=== PATIENT | female | born 1960 | race American Indian/Alaskan Native ===

== ENCOUNTER 2017-07-27 12:52 | Inpatient (IN) | payer MEDICAID, OTHER ==
[2017-07-27] MEDS ORDERED: Iohexol 240 (50 ml) PO STA (13:30)
[2017-07-27] MEDS ORDERED: Sodium Chloride 0.9% 1,000 ML IV ONE (13:30)
--- NOTE | 2017-07-27 13:36 | C.PDOC ---
History Of Present Illness 56 year old female with PMHx of DM and HTN comes in to the ED for evaluation of generalized abdominal pain in the mid/upper abdomen area that started yesterday which worsens with movement or after eating. Patient states her pain was initially mild but kept getting progressively worse last night, vomited once and has been unable to eat since then. Patient reports she had this type of symptoms before but were much more mild in comparison. Patient denies fever, chills, diarrhea, back pain, dysuria, hematuria, vaginal bleeding, vaginal discharge. Time Seen by Provider: 07/27/17 13:24 Chief Complaint (Nursing): Abdominal Pain History Per: Patient History/Exam Limitations: no limitations Onset/Duration Of Symptoms: Hrs Current Symptoms Are (Timing): Still Present Severity: Mild Location Of Pain/Discomfort: Diffuse, Epigastric Radiation Of Pain To:: None Quality Of Discomfort: "Pain" Associated Symptoms: Nausea, Vomiting, Loss Of Appetite Exacerbating Factors: Movement, Food Alleviating Factors: None Recent travel outside of the [place]: No Additional History Per: Patient Abnormal Vaginal Bleeding: No Past Medical History Reviewed: Historical Data, Nursing Documentation, Vital Signs Vital Signs: Last Vital Signs Temp 97.8 F 07/27/17 16:57 Pulse 103 H 07/27/17 16:57 Resp 18 07/27/17 16:57 BP 116/70 07/27/17 16:57 Pulse Ox 95 07/27/17 17:08 - Medical History PMH: HTN Other Surgeries: Tubal ligation Family History: States: Unknown Family Hx - Social History Hx Alcohol Use: No Hx Substance Use: No - Immunization History Hx Tetanus Toxoid Vaccination: Yes Hx Influenza Vaccination: Yes Hx Pneumococcal Vaccination: Yes Review Of Systems Constitutional: Negative for: Fever, Chills Cardiovascular: Negative for: Chest Pain Respiratory: Negative for: Cough, Shortness of Breath Gastrointestinal: Positive for: Vomiting, Abdominal Pain Genitourinary: Negative for: Dysuria, Hematuria, Vaginal Discharge, Vaginal Bleeding Musculoskeletal: Negative for: Back Pain Skin: Negative for: Rash Neurological: Negative for: Weakness, Numbness Physical Exam - Physical Exam Appears: Non-toxic, Other (Uncomfortable) Skin: Normal Color, Warm, Dry Head: Atraumatic, Normacephalic Nose: No Discharge, No Deformity Oral Mucosa: Moist Neck: Normal ROM, Supple Chest: Symmetrical Cardiovascular: Rhythm Regular, No Murmur Respiratory: Normal Breath Sounds, No Rales, No Rhonchi, No Wheezing Gastrointestinal/Abdominal: Bowel Sounds (Quiet), Soft, Tenderness (epigastric, periumbilical area), Guarding, No Rebound Extremity: Normal ROM, No Pedal Edema, No Calf Tenderness, No Deformity, No Swelling Neurological/Psych: Oriented x3, Normal Speech, Normal Cognition Gait: Steady ED Course And Treatment - Laboratory Results Result Diagrams: 07/27/17 13:50 07/27/17 13:50 Lab Interpretation: Abnormal Interpretation Of Abnormal: Elevated WBC 12.9 with left shift O2 Sat by Pulse Oximetry: 95 (On RA) Pulse Ox Interpretation: Normal - CT Scan/US CT abdo/pelvis Other Rad Studies (CT/US): Interpreted By Me, Read By Radiologist, Radiology Report Reviewed CT/US Interpretation: PROCEDURE: CT Abdomen and Pelvis with oral and IV contrast. HISTORY: abd pain. COMPARISON: None available. TECHNIQUE: Contiguous axial images of the abdomen and pelvis. Oral and IV contrast was administered. Coronal and Sagittal reformats generated and reviewed. Contrast dose: 100 mL Visipaque. Radiation dose: Total exam DLP = 566.86 mGy-cm. This CT exam was performed using one or more of the following dose reduction techniques: Automated exposure control, adjustment of the mA and/or kV according to patient size, and/or use of iterative reconstruction technique. FINDINGS: LOWER THORAX: Bibasilar atelectasis/ infiltrates. Trace pleural effusions. No visible pneumothorax. Small hiatal hernia. LIVER: Unremarkable. GALLBLADDER AND BILE DUCTS: Unremarkable. PANCREAS: Unremarkable. SPLEEN: Unremarkable. ADRENALS: Unremarkable. KIDNEYS AND URETERS: The kidneys enhance symmetrically. No hydronephrosis or obstructing renal calculus. BLADDER: The urinary bladder appears unremarkable. REPRODUCTIVE: Uterus is present. APPENDIX: Right lower quadrant inflammatory changes and small fluid. The proximal appendix appears within normal limits of caliber however the distal tip appears thick-walled and dilated with extensive associated inflammatory changes; overall appearance consistent with tip appendicitis. Correlate clinically. BOWEL: The stomach is nondistended. The bowel loops appear within normal limits of caliber without evidence of intestinal obstruction. PERITONEUM: No significant free fluid. No definite free air. LYMPH NODES: No bulky lymphadenopathy identified. VASCULATURE: No aortic aneurysm. BONES: Degenerative changes. OTHER FINDINGS: None. IMPRESSION: Right lower quadrant inflammatory changes and small fluid. The proximal appendix appears within normal limits of caliber however the distal tip appears thick-walled and dilated with extensive associated inflammatory changes; overall appearance consistent with tip appendicitis. Correlate clinically. Findings discussed with Dr. Blevins on 07/27/17 at 4:57 p.m. Reevaluation Time: 17:13 Reassessment Condition: Unchanged - Physician Consult Information Time Consulting Physician Contacted: 17:14 Physician Contacted: Clarisse Mittal Outcome Of Conversation: Patient to be admitted for surgery. Medical Decision Making Medical Decision Making: Impression : abdominal pain, vomit, decreased PO Plan: * Blood work * UA * Morphine 2 mg IVP * Omnipaque 50 ml PO * IV fluids * Zofran 4 mg IVP * CT abdo/pelvis Disposition - Disposition Disposition: HOSPITALIZED Disposition Time: 17:14 Condition: STABLE - Clinical Impression Clinical Impression: Appendicitis, acute - Scribe Statement The provider has reviewed the documentation as recorded by the Scribe Pa Lynne All medical record entries made by the Scribe were at my direction and personally dictated by me. I have reviewed the chart and agree that the record accurately reflects my personal performance of the history, physical exam, medical decision making, and the department course for this patient. I have also personally directed, reviewed, and agree with the discharge instructions and disposition.
[2017-07-27] MEDS ORDERED: Iohexol 240 (50 ml) ONE (13:41)
[2017-07-27] MEDS ORDERED: Sodium Chloride 0.9% 1,000 ML ONE (13:42)
[2017-07-27 13:59] LABS: BASO % 0.3 % (0.0-2.0); EOS % 0.1 % (0.0-4.0); HEMATOCRIT 39.6 % (34.0-47.0); LYMPH # 1.8 K/uL (1.0-4.3); LYMPH % 13.8 % (20.0-40.0); MEAN CORPUSCULAR HEMOGLOBIN 28.1 pg (27.0-31.0); MEAN CORPUSCULAR HGB CONC 32.6 g/dL (33.0-37.0); MEAN PLATELET VOLUME 10.1 fL (7.2-11.7); MONO # 0.5 K/uL (0.0-0.8); MONO % 4.2 % (0.0-10.0); RED CELL DISTRIBUTION WIDTH 15.3 % (11.5-14.5); WHITE BLOOD COUNT 12.9 K/uL (4.8-10.8)
[2017-07-27 14:10] LABS: ALKALINE PHOSPHATASE 52 U/L (38-126); ALT/SGPT 51 U/L (9-52); AST/SGOT 21 U/L (14-36); BILIRUBIN,TOTAL 0.9 mg/dL (0.2-1.3); BLOOD UREA NITROGEN 10 mg/dL (7-17); CALCIUM 8.9 mg/dl (8.6-10.4); CARBON DIOXIDE 35 mmol/L (22-30); CHLORIDE 100 mmol/L (98-107); GFR AFRICAN-AMERICAN > 60; GLUCOSE,RANDOM 130 mg/dL (65-105); POTASSIUM 3.4 mmol/L (3.6-5.2); SODIUM 141 mmol/L (132-148); TOTAL PROTEIN 8.6 g/dL (6.3-8.3)
[2017-07-27 14:32] LABS: ALB/GLOB RATIO 0.9 (1.0-2.1)
[2017-07-27 15:30] LABS: RBC URINE 6 /hpf (0-3); URINE BACTERIA RARE (<OCC); URINE BILIRUBIN NEGATIVE (NEGATIVE); URINE BLOOD NEGATIVE (NEGATIVE); URINE COLOR Yellow (YELLOW); URINE GLUCOSE (UA) NORMAL (Normal); URINE KETONE NEGATIVE (NEGATIVE); URINE LEUKOCYTE ESTERASE 2+ Leu/uL (Negative); URINE PROTEIN NEGATIVE (NEGATIVE); URINE UROBILINOGEN NORMAL mg/dL (0.2-1.0); WBC URINE 16 /hpf (0-5)
[2017-07-27] MEDS ORDERED: Iodixanol 320 mg/ml 150 ml Bottle IV ONE (16:05)
--- NOTE | 2017-07-27 17:02 | CT ---
PROCEDURE: CT Abdomen and Pelvis with oral and IV contrast. HISTORY: abd pain COMPARISON: None available. TECHNIQUE: Contiguous axial images of the abdomen and pelvis. Oral and IV contrast was administered. Coronal and Sagittal reformats generated and reviewed. Contrast dose: 100 mL Visipaque Radiation dose: Total exam DLP = 566.86 mGy-cm. This CT exam was performed using one or more of the following dose reduction techniques: Automated exposure control, adjustment of the mA and/or kV according to patient size, and/or use of iterative reconstruction technique. FINDINGS: LOWER THORAX: Bibasilar atelectasis/ infiltrates. Trace pleural effusions. No visible pneumothorax. Small hiatal hernia. LIVER: Unremarkable. GALLBLADDER AND BILE DUCTS: Unremarkable. PANCREAS: Unremarkable. SPLEEN: Unremarkable. ADRENALS: Unremarkable. KIDNEYS AND URETERS: The kidneys enhance symmetrically. No hydronephrosis or obstructing renal calculus. BLADDER: The urinary bladder appears unremarkable. REPRODUCTIVE: Uterus is present. APPENDIX: Right lower quadrant inflammatory changes and small fluid. The proximal appendix appears within normal limits of caliber however the distal tip appears thick-walled and dilated with extensive associated inflammatory changes; overall appearance consistent with tip appendicitis. Correlate clinically. BOWEL: The stomach is nondistended. The bowel loops appear within normal limits of caliber without evidence of intestinal obstruction. PERITONEUM: No significant free fluid. No definite free air. LYMPH NODES: No bulky lymphadenopathy identified. VASCULATURE: No aortic aneurysm. BONES: Degenerative changes. OTHER FINDINGS: None. IMPRESSION: Right lower quadrant inflammatory changes and small fluid. The proximal appendix appears within normal limits of caliber however the distal tip appears thick-walled and dilated with extensive associated inflammatory changes; overall appearance consistent with tip appendicitis. Correlate clinically. Findings discussed with Dr. Blevins on 07/27/17 at 4:57 p.m.
[2017-07-27] MEDS ORDERED: Piperacillin/Tazobact 3.375 gm 100 ML IV STA (17:15)
[2017-07-27] MEDS ORDERED: Morphine 4 MG/ML VIAL IVP PRN ×2 (17:55→21:04)
[2017-07-27] MEDS: Lactated Ringer's 1,000 ML IV SCH (18:35)
--- NOTE | 2017-07-27 19:17 | CP.PCM.HP ---
History of Present Illness - History of Present Illness History of Present Illness: GENERAL SURGERY HISTORY AND PHYSICAL NOTE FOR DR. JORDAN 56yo F with PMHx of HTN, DM, palpitations presents to the ED with abdominal pain. The pain is periumbilical and spreads diffusely but is worse on the right side. The pain began yesterday around noon. She was nauseous and vomited once. Denies diarrhea. Her last BM was 3 days ago but she does not feel constipated. He has chills. She last ate yesterday at breakfast. PMHx: HTN, DM, palpitations on beta norbert Surgeries: tubal ligation Allergies: none Social history: denies etoh, illicit drug use or tobacco use, moved to the from [place] in 2013 Present on Admission - Present on Admission Any Indicators Present on Admission: No Review of Systems - Review of Systems All systems: reviewed and no additional remarkable complaints except (as per hpi ) Past Patient History - Past Social History Smoking Status: Never Smoked - CARDIAC Hx Hypertension: Yes - ENDOCRINE/METABOLIC Hx Diabetes Mellitus Type 1: Yes - PSYCHIATRIC Hx Substance Use: No - SURGICAL HISTORY Hx Surgeries: No - ANESTHESIA Hx Anesthesia: No Meds Allergies/Adverse Reactions: Allergies Allergy/AdvReac Type Severity Reaction Status Date / Time No Known Allergies Allergy Verified 07/27/17 13:05 Physical Exam - Constitutional Appears: Well, Non-toxic, No Acute Distress - Head Exam Head Exam: ATRAUMATIC, NORMAL INSPECTION - Eye Exam Eye Exam: EOMI, Normal appearance - Respiratory Exam Respiratory Exam: NORMAL BREATHING PATTERN. absent: Respiratory Distress - Cardiovascular Exam Cardiovascular Exam: Tachycardia (mild), +S1, +S2 - GI/Abdominal Exam GI & Abdominal Exam: Rebound, Soft, Tenderness (tender diffusely, more in RLQ). absent: Distended, Firm, Guarding, Rigid - Neurological Exam Neurological exam: Alert, CN II-XII Intact, Oriented x3 - Psychiatric Exam Psychiatric exam: Normal Affect, Normal Mood - Skin Skin Exam: Dry, Normal Color, Warm Results - Vital Signs Recent Vital Signs: Last Vital Signs Temp 100 F H 07/27/17 17:52 Pulse 100 H 07/27/17 17:52 Resp 18 07/27/17 17:52 BP 135/80 07/27/17 17:52 Pulse Ox 97 07/27/17 17:52 - Labs Result Diagrams: 07/27/17 13:50 07/27/17 13:50 Labs: Laboratory Results - last 24 hr 07/27/17 07/27/17 07/27/17 13:50 13:50 15:17 WBC 12.9 H RBC 4.60 Hgb 12.9 Hct 39.6 MCV 86.0 MCH 28.1 MCHC 32.6 L RDW 15.3 H Plt Count 143 MPV 10.1 Neut % (Auto) 81.6 H Lymph % (Auto) 13.8 L [place] % (Auto) 4.2 Eos % (Auto) 0.1 Baso % (Auto) 0.3 Neut # 10.6 H Lymph # 1.8 [place] # 0.5 Eos # 0.0 Baso # 0.0 Sodium 141 Potassium 3.4 L Chloride 100 Carbon Dioxide 35 H Anion Gap 9 L BUN 10 Creatinine 0.8 Est GFR ( Amer) > 60 Est GFR (Non-Af Amer) > 60 POC Glucose (mg/dL) Random Glucose 130 H Calcium 8.9 Total Bilirubin 0.9 AST 21 ALT 51 Alkaline Phosphatase 52 Total Protein 8.6 H Albumin 4.0 Globulin 4.6 H Albumin/Globulin Ratio 0.9 L Lipase 60 Urine Color Yellow Urine Clarity Hazy Urine pH 7.0 Ur Specific [place] 1.002 L Urine Protein Negative Urine Glucose (UA) Normal Urine Ketones Negative Urine Blood Negative Urine Nitrate Negative Urine Bilirubin Negative Urine Urobilinogen Normal Ur Leukocyte Esterase 2+ H Urine WBC (Auto) 16 H Urine RBC (Auto) 6 H Ur Squamous Epith Cells 15 H Urine Bacteria Rare 07/27/17 18:03 WBC RBC Hgb Hct MCV MCH MCHC RDW Plt Count MPV Neut % (Auto) Lymph % (Auto) [place] % (Auto) Eos % (Auto) Baso % (Auto) Neut # Lymph # [place] # Eos # Baso # Sodium Potassium Chloride Carbon Dioxide Anion Gap BUN Creatinine Est GFR ( Amer) Est GFR (Non-Af Amer) POC Glucose (mg/dL) 109 Random Glucose Calcium Total Bilirubin AST ALT Alkaline Phosphatase Total Protein Albumin Globulin Albumin/Globulin Ratio Lipase Urine Color Urine Clarity Urine pH Ur Specific [place] Urine Protein Urine Glucose (UA) Urine Ketones Urine Blood Urine Nitrate Urine Bilirubin Urine Urobilinogen Ur Leukocyte Esterase Urine WBC (Auto) Urine RBC (Auto) Ur Squamous Epith Cells Urine Bacteria Assessment & Plan - Assessment and Plan (Free Text) Assessment: 56yo F with PMHx of HTN, DM, palpitations presents with abdominal pain and is found to have acute appendicitis - Temp 100, mild tachycardia - Leukocytosis 12.9 - Mild hypokalemia, gave 10meq IV KCl - NPO, IV fluids - IV Zosyn - Morphine and Zofran PRN - OR now for appendectomy - Procedure and risks explained to patient, all questions were answered, written consent was obtained - Discussed plan with Dr. Kyrie Kemp PGY-3
[2017-07-27] MEDS ORDERED: Lactated Ringer's 1,000 ML IV ONE ×2 (19:35→21:50)
[2017-07-27] MEDS ORDERED: Succinylcholine Chloride 20 mg/ml Syr (5 ml) IV ONE (19:39)
[2017-07-27] MEDS ORDERED: Propofol 10 mg/ml Inj (20 ML) ONE (19:39)
[2017-07-27] MEDS ORDERED: Rocuronium 10 mg/ml (5 ml) ONE (19:40)
[2017-07-27] MEDS ORDERED: Midazolam 2 MG/2 ML VIAL ONE (19:42)
[2017-07-27] MEDS ORDERED: Neostigmine Methylsulfate 3mg/3ml Syringe IV ONE (20:34)
[2017-07-27] MEDS ORDERED: HYDROmorphone 0.5 mg/0.5 ml ISec IVP PRN (20:57)
--- NOTE | 2017-07-27 20:58 | PCM.SURG1 ---
Surgeon's Initial Post Op Note - Surgeon's Notes Surgeon: Dr. Mittal Provider Relations Representative: Dr. Kemp PGY-3 Type of Anesthesia: General Endo Anesthesia Administered By: Dr. Parker Pre-Operative Diagnosis: Acute appendicitis Operative Findings: Purulent exhudate, surrounding tip of appendix Post-Operative Diagnosis: Acute appendicitis Operation Performed: Laparoscopic appendectomy Specimen/Specimens Removed: appendix Estimated Blood Loss: EBL {In ML}: 15 Blood Products Given: N/A Drains Used: No Drains Post-Op Condition: Fair Date of Surgery/Procedure: 07/27/17 Time of Surgery/Procedure: 20:58
[2017-07-27] MEDS ORDERED: Oxycodone/Acetaminophen 5/325 mg Tab PO PRN (21:03)
[2017-07-27] MEDS: (Novolin R) Insulin Human Regular 100 units/ml vial SC SCH (23:37)
[2017-07-28] MEDS: Benzocaine/Menthol (Cepacol) Lozenge MT PRN ×3 (00:24→12:26)
[2017-07-28] MEDS: Piperacill/Tazo 3.375gm in Dex 3.375 GM/50 ML BAG IVPB SCH ×4 (00:25→17:54)
[2017-07-28] MEDS: Lactated Ringer's 1,000 ML IV SCH ×3 (05:33→17:55)
[2017-07-28 07:53] LABS: BLOOD UREA NITROGEN 10 mg/dL (7-17); CALCIUM 7.9 mg/dl (8.6-10.4); CARBON DIOXIDE 32 mmol/L (22-30); CHLORIDE 102 mmol/L (98-107); GFR AFRICAN-AMERICAN > 60; GLUCOSE,RANDOM 205 mg/dL (65-105); POTASSIUM 3.5 mmol/L (3.6-5.2); SODIUM 139 mmol/L (132-148)
[2017-07-28 07:55] LABS: HEMATOCRIT 33.4 % (34.0-47.0); LYMPH # 0.6 K/uL (1.0-4.3); MEAN CELL VOLUME 85.9 fL (81.0-99.0); MEAN CORPUSCULAR HEMOGLOBIN 27.7 pg (27.0-31.0); MEAN CORPUSCULAR HGB CONC 32.3 g/dL (33.0-37.0); MEAN PLATELET VOLUME 10.5 fL (7.2-11.7); MONO # 0.2 K/uL (0.0-0.8); MONO % 1.6 % (0.0-10.0); PLATELET COUNT 127 K/uL (130-400); RED CELL DISTRIBUTION WIDTH 15.4 % (11.5-14.5); WHITE BLOOD COUNT 12.6 K/uL (4.8-10.8)
[2017-07-28] MEDS: (Novolin R) Insulin Human Regular 100 units/ml vial SC SCH ×4 (08:20→21:17)
[2017-07-28] MEDS: Potassium Chloride 20 mEq ER Tab PO SCH (09:38)
[2017-07-28 09:41] LABS: NEUTROPHIL 86 % (50-75); TOTAL CELLS COUNTED 100
[2017-07-28 09:43] LABS: LARGE PLATELETS PRESENT
--- NOTE | 2017-07-28 10:33 | CP.PCM.PN ---
Subjective - Date & Time of Evaluation Date of Evaluation: 07/28/17 Time of Evaluation: 10:31 - Subjective Subjective: Gen sx: Dr Mittal Pt S&E. POD#1 s/p lap appy. NAEO. No complaints. Pain well controlled. Tolerating diet. Urinating. Denies N/V, F/c. Objective - Vital Signs/Intake and Output Vital Signs (last 24 hours): Temp Pulse Resp BP Pulse Ox 98.5 F 89 20 93/56 L 94 L 07/28/17 07:00 07/28/17 07:00 07/28/17 07:00 07/28/17 09:44 07/28/17 07:00 Intake and Output: 07/28/17 07/28/17 06:59 18:59 Intake Total 975 Balance 975 - Medications Medications: Current Medications Benzocaine/Menthol (Cepacol Sore Throat) 1 mimi MT Q4 PRN Last Admin: 07/28/17 05:32 Dose: 1 mimi Carvedilol (Coreg) 25 mg PO DAILY [facility] Last Admin: 07/28/17 09:44 Dose: Not Given Hydrochlorothiazide (Hydrodiuril) 25 mg PO DAILY [facility] Last Admin: 07/28/17 09:59 Dose: Not Given Piperacillin Sod/Tazobactam Sod (Zosyn 3.375 Gm Iv Premix) 3.375 gm in 50 mls @ 100 mls/hr IVPB Q6H [facility] Last Admin: 07/28/17 05:33 Dose: 100 mls/hr Lactated Ringer's (Lactated Ringer's) 1,000 mls @ 125 mls/hr IV .Q8H [facility] Last Admin: 07/28/17 05:33 Dose: 125 mls/hr Insulin Human Regular (Novolin R) 0 unit SC ACHS [facility] PRN Reason: Protocol Last Admin: 07/28/17 08:20 Dose: 2 unit Lisinopril (Zestril) 20 mg PO DAILY [facility] Last Admin: 07/28/17 09:58 Dose: Not Given Morphine Sulfate (Morphine) 4 mg IVP Q4 PRN PRN Reason: Pain, severe (8-10) Ondansetron HCl (Zofran Inj) 4 mg IVP Q4 PRN PRN Reason: Nausea/Vomiting Oxycodone/Acetaminophen (Percocet 5/325 Mg Tab) 1 tab PO Q4H PRN PRN Reason: Pain, moderate (4-7) Stop: 07/30/17 21:04 Potassium Chloride (K-Dur 20 Meq Er Tab) 20 meq PO DAILY [facility] Last Admin: 07/28/17 09:38 Dose: 20 meq - Labs Labs: 07/28/17 07:20 07/28/17 07:20 - Constitutional Appears: Non-toxic, No Acute Distress - ENT Exam ENT Exam: Mucous Membranes Moist - Respiratory Exam Respiratory Exam: absent: Accessory Muscle Use, Respiratory Distress - Cardiovascular Exam Cardiovascular Exam: REGULAR RHYTHM. absent: Tachycardia - GI/Abdominal Exam GI & Abdominal Exam: Soft, Tenderness (post-op and appropriate). absent: Distended Additional comments: dressing c/d/i - Neurological Exam Neurological Exam: Alert, Awake, Oriented x3 - Psychiatric Exam Psychiatric exam: Normal Affect - Skin Skin Exam: Normal Color, Warm Assessment and Plan - Assessment and Plan (Free Text) Assessment: 56F POD#1 s/p lap appy Plan: tx to all PO meds w/ exception of IV abx will remain in house for abx one more day D/C tomorrow on PO abx d/w Dr Kyrie Faith, PGY3
--- NOTE | 2017-07-28 12:32 | CARD ---
APPROVED REPORT EKG Measurement Heart [id number] MD [id number] <Conclusion> Sinus tachycardia Possible Left atrial enlargement Nonspecific T wave abnormality Abnormal ECG
[2017-07-28] MEDS ORDERED: (Novolin R) Insulin Human Regular 100 units/ml vial SC ONE (14:30)
[2017-07-28] MEDS: (Novolin 70/30) NPH/Regular 70/30 Units/ml 10 ml vial SC SCH (18:00)
[2017-07-29] MEDS: Lactated Ringer's 1,000 ML IV SCH ×3 (00:09→11:12)
[2017-07-29] MEDS: Piperacill/Tazo 3.375gm in Dex 3.375 GM/50 ML BAG IVPB SCH ×3 (00:10→11:56)
--- NOTE | 2017-07-29 04:29 | OP ---
PROCEDURE DATE: 07/27/2017 PREOPERATIVE DIAGNOSIS: Acute appendicitis. POSTOPERATIVE DIAGNOSIS: Acute appendicitis. PROCEDURE: Laparoscopic appendectomy. SURGEON: Clarisse Mittal MD. OPTICAL BRIGHTENER MAKER HELPER: Viktoriya Kemp DO TYPE OF ANESTHESIA: General. ANESTHESIA ADMINISTERED BY: Dr Parker DESCRIPTION OF PROCEDURE: With the patient in the supine position under adequate general anesthesia, the abdomen was prepped and draped in the usual sterile manner. Veress needle puncture was performed at the umbilicus with insufflation to 15 cm of water pressure of CO2 and a 10-mm laparoscopic trocar was inserted via an infraumbilical incision. Under direct vision, 5 and 12-mm trocars were inserted in the left lower quadrant. Inspection of the right lower quadrant and iliac fossa revealed a moderate amount of purulent exudate overlying the area of the cecum and right gutter. This was gently freed away to reveal the tip of the appendix adherent to the area of the right gutter. However, no free fluid or purulent material was identified other than that adjacent to the tip of the appendix. The appendix was elevated. The proximal portion of the appendix appeared relatively well preserved and a window was dissected in the mesoappendix and the appendix was divided using an Endo ADDIE stapler. The mesoappendix was then divided also using the Endo ADDIE stapler. The area of the appendiceal artery was reinforced with Hemoclips. The appendix was placed in a specimen retrieval bag and removed via the 12-mm port site. The right lower quadrant and pelvis were irrigated and suctioned. The pneumoperitoneum was released and the trocars were removed. The umbilical and 12-mm port sites were closed with [id number] fascial sutures of 0-Vicryl. All incisions were closed with 4-0 Monocryl, subcuticular sutures, and Steri-Strips. Dry sterile dressings were applied. The patient tolerated the procedure well and transferred to recovery room in stable condition. Estimated blood loss for the procedure was 15 mL. Clarisse Mittal MD [facility] # [id number] [facility]
[2017-07-29] MEDS: (Novolin R) Insulin Human Regular 100 units/ml vial SC SCH ×2 (08:22→11:43)
[2017-07-29 09:46] LABS: HEMATOCRIT 33.4 % (34.0-47.0); MEAN CELL VOLUME 86.7 fL (81.0-99.0); MEAN CORPUSCULAR HEMOGLOBIN 27.5 pg (27.0-31.0); MEAN CORPUSCULAR HGB CONC 31.7 g/dL (33.0-37.0); MEAN PLATELET VOLUME 10.6 fL (7.2-11.7); RED CELL DISTRIBUTION WIDTH 15.7 % (11.5-14.5); WHITE BLOOD COUNT 11.7 K/uL (4.8-10.8)
[2017-07-29 09:57] LABS: BLOOD UREA NITROGEN 13 mg/dL (7-17); CARBON DIOXIDE 35 mmol/L (22-30); CHLORIDE 105 mmol/L (98-107); GFR AFRICAN-AMERICAN > 60; GLUCOSE,RANDOM 153 mg/dL (65-105); POTASSIUM 3.6 mmol/L (3.6-5.2); SODIUM 142 mmol/L (132-148)
[2017-07-29] MEDS: (Novolin 70/30) NPH/Regular 70/30 Units/ml 10 ml vial SC SCH (09:57)
[2017-07-29] MEDS: Potassium Chloride 20 mEq ER Tab PO SCH (09:58)
[2017-07-29] MEDS ORDERED: Enoxaparin 40 mg Syringe SC SCH (10:00)
[2017-07-29 15:47] VITALS: BP 116/74; PULSE 74; RESP 18; TEMP 98.5; O2SAT 95
--- NOTE | 2017-07-29 16:38 | CP.PCM.DIS ---
Provider - Provider Date of Admission: 07/27/17 17:15 Attending physician: Clarisse Mittal MD Time Spent in preparation of Discharge (in minutes): 10 Hospital Course - Lab Results Lab Results: Micro Results 07/27/17 17:00 Urine Urine Culture - Final No Growth (<1,000 CFU/ML) Most Recent Lab Values WBC 11.7 K/uL (4.8-10.8) H 07/29/17 09:35 RBC 3.85 Mil/uL (3.80-5.20) 07/29/17 09:35 Hgb 10.6 g/dL (11.0-16.0) L 07/29/17 09:35 Hct 33.4 % (34.0-47.0) L 07/29/17 09:35 MCV 86.7 fL (81.0-99.0) 07/29/17 09:35 MCH 27.5 pg (27.0-31.0) 07/29/17 09:35 MCHC 31.7 g/dL (33.0-37.0) L 07/29/17 09:35 RDW 15.7 % (11.5-14.5) H 07/29/17 09:35 Plt Count 138 K/uL (130-400) 07/29/17 09:35 MPV 10.6 fL (7.2-11.7) 07/29/17 09:35 Neut % (Auto) 93.4 % (50.0-75.0) H 07/28/17 07:20 Lymph % (Auto) 5.0 % (20.0-40.0) L 07/28/17 07:20 [place] % (Auto) 1.6 % (0.0-10.0) 07/28/17 07:20 Eos % (Auto) 0.0 % (0.0-4.0) 07/28/17 07:20 Baso % (Auto) 0.0 % (0.0-2.0) 07/28/17 07:20 Neut # 11.8 K/uL (1.8-7.0) H 07/28/17 07:20 Lymph # 0.6 K/uL (1.0-4.3) L 07/28/17 07:20 [place] # 0.2 K/uL (0.0-0.8) 07/28/17 07:20 Eos # 0.0 K/uL (0.0-0.7) 07/28/17 07:20 Baso # 0.0 K/uL (0.0-0.2) 07/28/17 07:20 Neutrophils % (Manual) 86 % (50-75) H 07/28/17 07:20 Band Neutrophils % 2 % (0-2) 07/28/17 07:20 Lymphocytes % (Manual) 9 % (20-40) L 07/28/17 07:20 Monocytes % (Manual) 3 % (0-10) 07/28/17 07:20 Platelet Estimate Slightly decreased (NORMAL) L 07/28/17 07:20 Large Platelets Present 07/28/17 07:20 Ovalocytes Slight 07/28/17 07:20 Jennifer Cells Slight 07/28/17 07:20 Sodium 142 mmol/L (132-148) 07/29/17 09:35 Potassium 3.6 mmol/L (3.6-5.2) 07/29/17 09:35 Chloride 105 mmol/L (98-107) 07/29/17 09:35 Carbon Dioxide 35 mmol/L (22-30) H 07/29/17 09:35 Anion Gap 6 (10-20) L 07/29/17 09:35 BUN 13 mg/dL (7-17) 07/29/17 09:35 Creatinine 0.9 mg/dL (0.7-1.2) 07/29/17 09:35 Est GFR ( Amer) > 60 07/29/17 09:35 Est GFR (Non-Af Amer) > 60 07/29/17 09:35 POC Glucose (mg/dL) 119 mg/dL (65-110) H 07/29/17 11:39 Random Glucose 153 mg/dL (65-105) H 07/29/17 09:35 Calcium 8.0 mg/dl (8.6-10.4) L 07/29/17 09:35 Total Bilirubin 0.9 mg/dL (0.2-1.3) 07/27/17 13:50 AST 21 U/L (14-36) 07/27/17 13:50 ALT 51 U/L (9-52) 07/27/17 13:50 Alkaline Phosphatase 52 U/L (38-126) 07/27/17 13:50 Total Protein 8.6 g/dL (6.3-8.3) H 07/27/17 13:50 Albumin 4.0 g/dL (3.5-5.0) 07/27/17 13:50 Globulin 4.6 gm/dL (2.2-3.9) H 07/27/17 13:50 Albumin/Globulin Ratio 0.9 (1.0-2.1) L 07/27/17 13:50 Lipase 60 U/L (23-300) 07/27/17 13:50 Urine Color Yellow (YELLOW) 07/27/17 15:17 Urine Clarity Hazy (Clear) 07/27/17 15:17 Urine pH 7.0 (5.0-8.0) 07/27/17 15:17 Ur Specific [place] 1.002 (1.003-1.030) L 07/27/17 15:17 Urine Protein Negative mg/dL (NEGATIVE) 07/27/17 15:17 Urine Glucose (UA) Normal mg/dL (Normal) 07/27/17 15:17 Urine Ketones Negative mg/dL (NEGATIVE) 07/27/17 15:17 Urine Blood Negative (NEGATIVE) 07/27/17 15:17 Urine Nitrate Negative (NEGATIVE) 07/27/17 15:17 Urine Bilirubin Negative (NEGATIVE) 07/27/17 15:17 Urine Urobilinogen Normal mg/dL (0.2-1.0) 07/27/17 15:17 Ur Leukocyte Esterase 2+ [place]/uL (Negative) H 07/27/17 15:17 Urine WBC (Auto) 16 /hpf (0-5) H 07/27/17 15:17 Urine RBC (Auto) 6 /hpf (0-3) H 07/27/17 15:17 Ur Squamous Epith Cells 15 /hpf (0-5) H 07/27/17 15:17 Urine Bacteria Rare (<OCC) 07/27/17 15:17 - Hospital Course Hospital Course: 56F admitted with acute appendicitis. Taken to OR for lap appendectomy. Tolerated well. Kept oneadditional day for antibiotics. d/c today with rx for percocet and tolerating diet, ambulating, pain under control. Will follow up in office in 1 week Discharge Exam - Head Exam Head Exam: ATRAUMATIC, NORMAL INSPECTION - Eye Exam Eye Exam: Normal appearance - Respiratory Exam Respiratory Exam: NORMAL BREATHING PATTERN. absent: Accessory Muscle Use, Respiratory Distress - Cardiovascular Exam Cardiovascular Exam: REGULAR RHYTHM - GI/Abdominal Exam GI & Abdominal Exam: Soft, Tenderness (post-op and appropriate). absent: Distended, Firm, Guarding, Hernia, Hypoactive Bowel Sounds Discharge Plan - Discharge Medications Prescriptions: oxyCODONE/Acetaminophen [Percocet 5/325 mg Tab] 1 ea PO Q6 PRN #10 tab PRN Reason: Pain, Moderate (4-7) - Follow Up Plan Condition: STABLE Disposition: HOME/ ROUTINE Instructions: Oxycodone/Acetaminophen (By mouth), Appendicitis (DC), Pain Management in the Elderly (DC), Laparoscopic Appendectomy (DC) Additional Instructions: 1. Follow up with Dr. Mittal in clinic within 7 days. Call for appointment 2. Take pain meds sparingly as needed 3. Keep dressings clean and dry, replace as needed. You may shower, no soaking, no bathing, no pools 4. No heavy lifting (>10 lbs) for 4-6 weeks 5. Resume all home meds Referrals: Clarisse Mittal MD [Staff Provider] -
== END 2017-07-29 16:38 | disposition home or self-care (01) | DRG 883 ==
LOC: C.ER 12:52 → C.9E 17:15 → C.6T 17:37
PROVIDERS: ADMIT Specialist; ATTEND Specialist
PROC: 0DTJ4ZZ Resection of Appendix, Percutaneous Endoscopic Approach (ICD-10-PCS; principal; 2017-07-27 19:00)
DX: K35.89 Other acute appendicitis (principal); E11.9 Type 2 diabetes mellitus without complications; E87.6 Hypokalemia; R00.0 Tachycardia, unspecified; I10 Essential (primary) hypertension; Z79.4 Long term (current) use of insulin

== ENCOUNTER 2017-08-02 12:10 | Emergency (ER) | payer MEDICAID ==
[2017-08-02 12:33] VITALS: BP 110/74; PULSE 89; RESP 18; TEMP 97.8; O2SAT 96
--- NOTE | 2017-08-02 12:55 | C.PDOC ---
History Of Present Illness 56 yo female s/p laparoscopic appendectomy by on 07/27/17 come in for post-surgical re-evaluation., Pt reports, " tried to follow up with surgeon at [facility] but they dont take my insurance". Otherwise, pt denies any other active complaints. Denies fever, chills, abd. pain, V/D, constipation or any other complaints. Ambulate to ED for evaluation, not in any apparent distress. Time Seen by Provider: 08/02/17 12:47 Chief Complaint (Nursing): Abnormal Skin Integrity Past Medical History Vital Signs: Last Vital Signs Temp 97.8 F 08/02/17 12:31 Pulse 89 08/02/17 12:31 Resp 18 08/02/17 12:31 BP 110/74 08/02/17 12:31 Pulse Ox 96 08/02/17 13:05 - Medical History PMH: HTN Denies: Chronic Kidney Disease - [facility] Procedures RESECTION OF APPENDIX, PERCUTANEOUS ENDOSCOPIC APPROACH (07/27/17) Family History: States: Unknown Family Hx - Social History Hx Alcohol Use: No Hx Substance Use: No - Immunization History Hx Tetanus Toxoid Vaccination: Yes Hx Influenza Vaccination: Yes Hx Pneumococcal Vaccination: Yes Physical Exam - Physical Exam Appears: Well, Non-toxic, No Acute Distress Skin: Normal Color, Warm, Dry Eye(s): bilateral: PERRL Throat: No Erythema Neck: Supple Cardiovascular: Rhythm Regular Respiratory: No Decreased Breath Sounds, No Accessory Muscle Use, No Stridor, No Wheezing Gastrointestinal/Abdominal: Bowel Sounds (normal), Soft, No Distention, No Guarding, No Rebound, Other (small open insicion from previous laparoscopy over epigastric/Left LQ and suprapubic area appears clean, dry, intacte. No cellulitis, no wound draining.) Back: No CVA Tenderness Extremity: Normal ROM, No Deformity, No Swelling Neurological/Psych: Oriented x3, Normal Speech ED Course And Treatment O2 Sat by Pulse Oximetry: 96 Progress Note: vice president [employer] called for consult at12:38. Case discussed with at 1:04. Pt is asymptomatic, stable for discharge and outpt f/u now. Discussed with patient, educated on wound care. ref. to F/u with Dr. Mittal at [facility] or Private Office ( F/U is free) for further evaluation. Disposition - Disposition Referrals: Clarisse Mittal MD [Staff Provider] - Disposition: HOME/ ROUTINE Disposition Time: 13:02 Condition: STABLE Additional Instructions: FOLLOW UP WITH JULIAN ESPARZA IN 2-3 DAYS FOR RE-EVALUATION AT PRIVATE OFFICE 9 ITS FREE) RETURN TO ED IF ANY WORSENING OR NEW CHANGES. Instructions: Open Appendectomy (DC), Normal Exam (ED) Forms: [facility] (Macedonian), Work Excuse - Clinical Impression Clinical Impression: Normal exam, S/P appendectomy
== END 2017-08-02 13:13 | disposition home or self-care (01) ==
LOC: C.ER 12:10
DX: Z00.00 Encounter for general adult medical examination without abnormal findings (principal); Z98.890 Other specified postprocedural states